=== PATIENT | male | born 1945 | race Two or more races ===

== ENCOUNTER 2019-12-28 13:06 | Outpatient (CLI) | payer OTHER | END 2019-12-28 13:12 | disposition home or self-care (01) | LOC: NUCLEAR 13:06 | PROVIDERS: ATTEND Internal Medicine Cardiovascular Disease | DX: I50.42 Chronic combined systolic (congestive) and diastolic (congestive) heart failure (principal) | CPT/HCPCS: 78472; 78496; A9560 ==

== ENCOUNTER 2022-08-17 07:46 | Outpatient (CLI) | payer OTHER | END 2022-08-17 07:47 | disposition home or self-care (01) | LOC: NUCLEAR 07:46 | PROVIDERS: ATTEND Internal Medicine | DX: I42.0 Dilated cardiomyopathy (principal); I25.10 Atherosclerotic heart disease of native coronary artery without angina pectoris; I25.5 Ischemic cardiomyopathy; E03.9 Hypothyroidism, unspecified ==

== ENCOUNTER → 2023-09-03 10:40 | Outpatient (CLI) | payer OTHER | END | disposition home or self-care (01) | LOC: NUCLEAR 08-21 11:00 | PROVIDERS: ATTEND Internal Medicine | DX: I50.9 Heart failure, unspecified (principal); I25.5 Ischemic cardiomyopathy ==